=== PATIENT | female | born 1965 | race African-American/Black ===

== ENCOUNTER 2024-06-22 09:52 | Emergency (ER) | payer MEDICAID ==
[~2024-06-22] VITALS: Ht 175.3 cm; Wt 80.0 kg
[2024-06-22 09:56] VITALS: O2SAT 98
[2024-06-22 11:09] VITALS: BP 167/102; PULSE 88; RESP 20; TEMP 36.9; O2SAT 98
== END 2024-06-22 11:29 | disposition home or self-care (01) ==
LOC: ER 10:03
DX: I10 Essential (primary) hypertension (principal)
CPT/HCPCS: 93005; 99283